=== PATIENT | male | born 1990 | race African-American/Black ===

== ENCOUNTER 2018-05-10 20:08 | Emergency (ER) | payer OTHER ==
[~2018-05-10] VITALS: Ht 175.3 cm; Wt 72.0 kg
[2018-05-10] MEDS ORDERED: BUTA1CAP53 PO (20:38)
[2018-05-10] MEDS ORDERED: OXYMETAZOLINE HCL 0.05% 15 ML NASAL SPRAY NASAL ONE (21:00)
[2018-05-10 21:14] VITALS: BP 121/78
== END 2018-05-10 21:15 | disposition home or self-care (01) ==
LOC: EMS 20:10
DX: J32.9 Chronic sinusitis, unspecified (principal); R03.0 Elevated blood-pressure reading, without diagnosis of hypertension; F12.90 Cannabis use, unspecified, uncomplicated; F17.210 Nicotine dependence, cigarettes, uncomplicated
CPT/HCPCS: 99283